=== PATIENT | female | born 1955 | race Asian ===

== ENCOUNTER 2022-08-18 10:16 | Outpatient (CLI) | payer MEDICARE, OTHER ==
--- NOTE | 2022-08-26 09:15 | Mammography Report ---
BILATERAL DIGITAL SCREENING MAMMOGRAM 3D/2D: 08/18/2022 CLINICAL: Family history of breast cancer. High risk screening. Routine screening. No prior exams were available for comparison. There are scattered areas of fibroglandular density in both breasts (category b / 25%-50% glandular t issue). No significant masses, calcifications, or other findings are seen in either breast. IMPRESSION: NEGATIVE There is no mammographic evidence of malignancy. A 1 year screening mammogram is recommended. Based on the Tyrer Cuzick model (a risk assessment model) the patients lifetime risk is 13.1% and he r 10 year risk is 7.0%. According to the ACR, ACS, and NCCN guidelines, an annual breast MRI exam indra ng with mammogram is recommended if the patients lifetime risk is 20% or greater. This exam was interpreted at Station ID: [id number]. NOTE: For mammograms, a report in lay terms will be sent to the patient. Approximately 15% of breast malignancies will not be visualized mammographically. In the management of a palpable breast mass, a negative mammogram must not discourage biopsy of a clinically suspicious lesion. Electronically Signed By: Cesario goodman/bud:08/25/2022 08:37:01 letter sent: No_Letter ACR BI-RADS Category 1: Negative 3341F PARENCHYMAL PATTERN: (A) - The breast(s) demonstrate(s) scattered fibroglandular densities. BI-RADS CATEGORY: (1) - 1 Mammogram [id number] 1 year screening LATERALITY: (B)
== END 2022-08-18 10:17 | disposition home or self-care (01) ==
LOC: DI.N 10:16
DX: Z12.31 Encounter for screening mammogram for malignant neoplasm of breast (principal); Z80.3 Family history of malignant neoplasm of breast

== ENCOUNTER 2022-10-05 12:40 | Outpatient (CLI) | payer MEDICARE, OTHER ==
--- NOTE | 2022-10-05 15:14 | DEXA Report ---
PROCEDURE: Dexa Spine and/or Hip INDICATIONS: POST MENOPAUSAL TECHNIQUE: Dual energy x-ray absorptiometry (DXA) was performed on a [employer] System. Regions measur ed are the AP Spine, femoral neck, and if needed forearm. COMPARISON: None FINDINGS: Lumbar Spine: Bone Mineral Density 0.817 g/cm/cm,T score -3, osteoporosis. Left Femoral Neck: Bone Mineral Density 0.819 g/cm/cm, T score 1.6, osteopenia. Left Hip: Bone Mineral Density 0.872 g/cm/cm,T score -1.1, osteopenia. (T score greater or equal to -1.0: NORMAL) (T score from -1.1 to -2.4: OSTEOPENIA) (T score less than or equal to -2.5 to: OSTEOPOROSIS) Impression: By WHO criteria, this patient has osteoporosis of the spine and osteopenia of the hip. Patients with diagnosis of osteoporosis or osteopenia should have regular bone mineral density assess ment. For those eligible for Medicare, routine testing is allowed once every 2 years. Testing frequ ency can be increased for patients who have rapidly progressing disease or for those who are receivin g medical therapy to restore bone mass. Reviewed by: Gloria Hernandez MD on 10/05/2022 3:12 PM PDT Approved by: Gloria Hernandez MD on 10/05/2022 3:12 PM PDT Station ID: [id number]
== END 2022-10-05 12:41 | disposition home or self-care (01) ==
LOC: DI 12:40
PROVIDERS: ATTEND Nurse Practitioner
DX: M81.0 Age-related osteoporosis without current pathological fracture (principal); Z78.0 Asymptomatic menopausal state

== ENCOUNTER 2023-09-07 08:53 | Outpatient (CLI) | payer MEDICARE, OTHER ==
[2023-09-07 12:31] LABS: BASOPHILS % (AUTO) 0.5 %; EOSINOPHILS # (AUTO) 0.2 10^3/uL (0.0-0.7); EOSINOPHILS % (AUTO) 3.1 %; HCT - HEMATOCRIT 43.3 % (37.0-47.0); HGB - HEMOGLOBIN 12.5 g/dL (12.0-16.0); LYMPHOCYTES # (AUTO) 2.2 10^3/uL (1.5-3.5); LYMPHOCYTES % (AUTO) 40.6 %; MEAN CORPUSCULAR HEMOGLOBIN 21.1 pg (27.0-31.0); MEAN CORPUSCULAR HGB CONC 28.9 g/dL (32.0-36.0); MEAN PLATELET VOLUME 11.5 fL (7.9-10.8); MONOCYTES # (AUTO) 0.4 10^3/uL (0.0-1.0); MONOCYTES % (AUTO) 6.4 %; NEUTROPHILS # (AUTO) 2.7 10^3/uL (1.5-6.6); NEUTROPHILS % (AUTO) 49.2 %; PLT - PLATELET COUNT 315 10^3/uL (130-450); RED BLOOD COUNT 5.93 10^6/uL (4.20-5.40); RED CELL DISTRIBUTION WIDTH 14.2 % (12.0-15.0); WHITE BLOOD COUNT 5.5 x10^3/uL (4.8-10.8)
[2023-09-07 12:36] LABS: SLIDE REVIEW? Indicated
[2023-09-07 12:44] LABS: PLATELET ESTIMATE, MANUAL NORMAL (130-450,000) (NORMAL); PLATELET MORPHOLOGY NORMAL APPEARANCE (NORMAL); RBC MORPHOLOGY (MULTIPLE) 1+ HYPOCHROMASIA (NORMAL)
[2023-09-07 13:02] LABS: ALBUMIN 4.5 g/dL (3.2-5.5); ALBUMIN/GLOBULIN RATIO 1.4 (1.0-2.2); ALKALINE PHOSPHATASE 65 IU/L (42-121); ALT ALANINE AMINOTRANSFERASE 10 IU/L (10-60); AST ASPARTATE AMINOTRANSFERASE 14 IU/L (10-42); BILIRUBIN,TOTAL 0.5 mg/dL (0.2-1.0); BUN - BLOOD UREA NITROGEN 16 mg/dL (6-20); CALCIUM 10.5 mg/dL (8.5-10.3); CARBON DIOXIDE - CO2 29 mmol/L (21-32); CHLORIDE 103 mmol/L (101-111); CHOL/HDL RATIO 4.7 (<4.4); CHOLESTEROL 296 mg/dL; CREATININE 0.9 mg/dL (0.6-1.3); GFR - MDRD 62 (>89); GLUCOSE 109 mg/dL (74-104); HDL CHOLESTEROL 63 mg/dL; LDL CHOLESTEROL,CALCULATED 188 mg/dL; POTASSIUM 4.2 mmol/L (3.5-4.5); SODIUM 138 mmol/L (135-145); TOTAL PROTEIN 7.7 g/dL (6.4-8.9); TRIGLYCERIDES 226 mg/dL (48-352); VLDL CHOLESTEROL 45 mg/dL
[2023-09-08 00:13] LABS: FERRITIN 204.1 ng/mL (11.0-306.8)
== END 2023-09-07 08:54 | disposition home or self-care (01) ==
LOC: LAB.N 08:53
PROVIDERS: ATTEND Nurse Practitioner
DX: I10 Essential (primary) hypertension (principal); E78.2 Mixed hyperlipidemia; R71.8 Other abnormality of red blood cells
CPT/HCPCS: 36415; 80053; 80061; 82728; 83540; 83721; 84466; 85025

== ENCOUNTER 2023-12-28 10:18 | Day surgery (SDC) | payer MEDICARE, OTHER ==
--- NOTE | 2023-12-28 06:38 | HISTORY & PHYSICAL EXAMINATION ---
PMH/PSH - Past Medical History Cardiovascular: positive: Hypertension, High cholesterol Respiratory: positive: None Endocrine/Autoimmune: positive: None GI: positive: None, GERD : positive: None HEENT: positive: None Psych: positive: None Musculoskeletal: positive: Chronic back pain Derm: positive: None MRSA Hx?: No - Past Surgical History General: positive: Colonoscopy Meds/Allgy - Home Medications Home Medications: Ambulatory Orders Medication Instructions Recorded Confirmed Lisinopril [Zestril] 40 mg PO DAILY 12/27/23 12/27/23 Rosuvastatin Calcium 10 mg PO DAILY 12/27/23 12/27/23 - Allergies Allergies/Adverse Reactions: Allergies Allergy/AdvReac Type Severity Reaction Status Date / Time No Known Drug Allergies Allergy Verified 12/27/23 12:53 Impression/Plan - Problem List Problem List: Pre-op H&P I am asked to see Tari for a screening colonoscopy examination. GI symptoms: None Family history of colon cancer/polyps: Sister recently diagnosed with appendiceal cancer Personal history of colon polyps: No Last colonoscopy examination: 10 years ago Anticoagulant use: No The Past Family, Social and Personal History has been reviewed with the patient. ROS Denies fevers, chills, night sweats, shortness of breath, chest pain, change in the color of skin or urine, diarrhea, constipation, hematemesis, hematochezia, headache, visual changes, muscle aches. PE VSS, Afeb HEENT: Pupils equal, round and reactive to light, sclera anicteric, normal hearing, oral mucous membranes moist and without lesions NECK: Supple without lymphadenopathy, thyromegaly or carotid bruits LUNGS: Clear to auscultation without wheezing HEART: NSR without murmurs CHEST: Equal and symmetric expansion, no rib pain ABD: Soft, nontender, no hepatosplenomegaly, no hernias GROIN: No hernias or lymphadenopathy EXTREMITIES: Normal neuro and muscular exam SKIN: Anicteric Radiologic Studies N/A Assessment: Request for a screening colonoscopy examination. Plan: Screening colonoscopy under sedation through the Day Surgery admission protocol at [facility]. Consent: Tari has been counseled for the procedure, it's indications, risks, benefits and expected outcome as well as alternative therapies. We specifically discussed risks associated with anesthesia and insertion of the endoscope into the large intestine which includes bleeding and injury to the colon which may require surgical intervention. Tari understands, agrees, and consents to the proposed operative strategy and requests that we proceed with the procedure as outlined in our discussion. Nathan Merchant MD, [facility] General Surgery Service
[2023-12-28] MEDS: LACTATED RINGERS 1,000 ML IV ONE ×2 (10:22→12:20)
[2023-12-28] MEDS ORDERED: PROPOFOL 500 MG/50 ML 500 MG/50 ML VIAL ONE (11:30)
[2023-12-28] MEDS ORDERED: LIDOCAINE-MPF 2% 5 ML VIAL ONE (11:30)
--- NOTE | 2023-12-28 11:30 | ANESTHESIA ---
Pre-Anesthesia VS, & Labs - Diagnosis screening - Procedure colonoscopy Vital Signs: Temp Pulse Resp BP Pulse Ox O2 Flow Rate 36.1 C L 89 12 124/95 H 100 12/28/23 10:39 12/28/23 10:39 12/28/23 10:39 12/28/23 10:39 12/28/23 10:39 Height: 5 ft Weight (kg): 56.3 kg Body Mass Index: 24.2 BMI Classification: Normal - NPO >8 hours Last Fluid Intake: am prep - Is Patient ?: No - Lab Results Lab results reviewed: Yes Home Medications and Allergies Home Medications: Ambulatory Orders Lisinopril [Zestril] 40 mg PO DAILY 12/27/23 Rosuvastatin Calcium 10 mg PO DAILY 12/27/23 Lisinopril [Zestril] 40 mg PO DAILY 12/27/23 Rosuvastatin Calcium 10 mg PO DAILY 12/27/23 Allergies/Adverse Reactions: Allergies Allergy/AdvReac Type Severity Reaction Status Date / Time No Known Drug Allergies Allergy Verified 12/27/23 12:53 Anes History & Medical History - Anesthetic History Anesthesia Complications: reports: No previous complications Family history of Anesthesia Complications: Denies Family history of Malignant Hyperthermia: Denies - Medical History Cardiovascular: reports: Hypertension, High cholesterol Pulmonary: reports: None Gastrointestinal: reports: None, GERD Urinary: reports: None Musculoskeletal: reports: Chronic back pain Endocrine/Autoimmune: reports: None Skin: reports: None - Surgical History General: reports: Colonoscopy Exam General: Alert, Oriented x3, Cooperative Dental: Partials Upper Mouth Openin Fingerbreadth Neck Mobility: Normal Mallampati classification: II Thyromental Distance: 4-6 cm Respiratory: Lungs clear, Normal breath sounds, No respiratory distress Cardiovascular: Regular rate Neurological: Normal speech Mental/Cognitive Status: Alert/Oriented X3, Normal for patient Cognitive Status: Within normal limits Plan Anesthesia Type: Total IV Consent for Procedure(s) Verified and Reviewed: Yes Code Status: Attempt Resuscitation ASA classification: 2-Mild systemic disease Is this case an emergency?: No
[2023-12-28 13:06] VITALS: BP 109/81; O2SAT 100
[2023-12-28] MEDS: SIMETHICONE 40 MG/0.6 ML 30 ML BOTTLE PO ONE (13:29)
--- NOTE | 2023-12-28 14:07 | ANESTHESIA POST OP EVALUATION ---
Anesthesia Post Eval - Post Anesthesia Eval Vitals: Last Vital Signs Temp 36.2 C L 12/28/23 13:03 Pulse 88 12/28/23 13:03 Resp 16 12/28/23 13:03 BP 109/81 H 12/28/23 13:03 Pulse Ox 100 12/28/23 13:03 O2 Flow Rate CV Function Including HR & BP: Stable Pain Control: Satisfactory Nausea & Vomiting: Negative Mental Status: Baseline Respiratory Status: Airway Patent Hydration Status: Satisfactory Anesthesia Complications: None
== END 2023-12-28 10:19 | disposition home or self-care (01) ==
LOC: SDS 10:18
PROVIDERS: ATTEND Surgery
DX: Z12.11 Encounter for screening for malignant neoplasm of colon (principal)
CPT/HCPCS: A9270; G0121; J7120

== ENCOUNTER 2024-02-11 15:47 | Outpatient (CLI) | payer MEDICARE, OTHER ==
--- NOTE | 2024-02-11 16:44 | Ultrasound Report ---
PROCEDURE: Abdomen Limited INDICATIONS: RUQ ABD PAIN TECHNIQUE: Real-time focused scanning was performed of the abdomen, with image documentation. COMPARISONS: None. FINDINGS: Liver: Liver is normal in size and heterogeneous in echotexture. No discrete hepatic lesion. Gallbladder: No gallstones, sludge, wall thickening or pericholecystic edema. Biliary ducts: Intrahepatic bile ducts are non-dilated. Extrahepatic bile duct caliber measures 3 m m. Normal is 6-7 mm or less in diameter, or 10 mm or less post-cholecystectomy. Pancreas: Visualized portions of the pancreas are sonographically normal. Right kidney: Normal in size and echotexture. Right kidney measures 8.5 cm long. No hydronephrosis o r nephrolithiasis. No solid masses. No complex renal cystic lesions which require follow-up. IVC: Intrahepatic inferior vena cava is patent. Miscellaneous: No free abdominal fluid. IMPRESSION: 1. Mildly heterogeneous liver parenchyma which may represent hepatic steatosis. No discrete hepatic l esion. 2. Normal-appearing gallbladder. No biliary ductal dilatation. 3. No abnormality is seen in visualized portion of pancreas and right kidney. Reviewed by: Neal Villa MD on 02/11/2024 4:42 PM PDT Approved by: Neal Villa MD on 02/11/2024 4:42 PM PDT Station ID: [id number]
== END 2024-02-11 15:48 | disposition home or self-care (01) ==
LOC: DI 15:47
PROVIDERS: ATTEND Nurse Practitioner
DX: R10.11 Right upper quadrant pain (principal)

== ENCOUNTER 2024-02-11 16:25 | Outpatient (CLI) | payer MEDICARE, OTHER ==
[2024-02-11 16:42] LABS: BASOPHILS % (AUTO) 0.3 %; EOSINOPHILS # (AUTO) 0.1 10^3/uL (0.0-0.7); EOSINOPHILS % (AUTO) 2.1 %; HCT - HEMATOCRIT 39.6 % (37.0-47.0); HGB - HEMOGLOBIN 11.6 g/dL (12.0-16.0); LYMPHOCYTES # (AUTO) 2.5 10^3/uL (1.5-3.5); LYMPHOCYTES % (AUTO) 37.4 %; MEAN CORPUSCULAR HEMOGLOBIN 21.4 pg (27.0-31.0); MEAN CORPUSCULAR HGB CONC 29.3 g/dL (32.0-36.0); MEAN CORPUSCULAR VOLUME 73.1 fL (81.0-99.0); MONOCYTES # (AUTO) 0.4 10^3/uL (0.0-1.0); MONOCYTES % (AUTO) 6.4 %; NEUTROPHILS # (AUTO) 3.6 10^3/uL (1.5-6.6); NEUTROPHILS % (AUTO) 53.7 %; PLT - PLATELET COUNT 246 10^3/uL (130-450); RED BLOOD COUNT 5.42 10^6/uL (4.20-5.40); RED CELL DISTRIBUTION WIDTH 14.3 % (12.0-15.0); WHITE BLOOD COUNT 6.8 x10^3/uL (4.8-10.8)
[2024-02-11 16:51] LABS: BILIRUBIN,URINE SMALL (NEGATIVE); GLUCOSE, URINE (UA) NEGATIVE (NEGATIVE); KETONES,URINE (UA) TRACE mg/dL (NEGATIVE); LEUKOCYTE ESTERASE, URINE MODERATE (NEGATIVE); NITRITE,URINE NEGATIVE (NEGATIVE); OCCULT BLOOD,URINE SMALL (NEGATIVE); PROTEIN,URINE TRACE mg/dL (NEGATIVE); UROBILINOGEN,URINE 0.2 (NORMAL) E.U./dL (NORMAL)
[2024-02-11 16:55] LABS: ALBUMIN 4.4 g/dL (3.2-5.5); ALBUMIN/GLOBULIN RATIO 1.5 (1.0-2.2); BILIRUBIN,TOTAL 0.5 mg/dL (0.2-1.0); CREATININE 0.7 mg/dL (0.6-1.3); POTASSIUM 4.6 mmol/L (3.5-4.5); TOTAL PROTEIN 7.4 g/dL (6.4-8.9)
[2024-02-11 16:56] LABS: CLARITY,URINE CLOUDY (CLEAR)
[2024-02-11 17:05] LABS: BACTERIA,URINE Moderate /HPF (None Seen); EPITHELIAL CELLS,UR FEW Transitional /HPF (<= Few); MUCUS,URINE Moderate Strands; RBC,URINE 0-5 /HPF (0-5); SQUAMOUS EPITHELIAL CELL,UR RARE Squamous (<= Few); WBC,URINE >25 /HPF (0-5)
== END 2024-02-11 16:26 | disposition home or self-care (01) ==
LOC: LAB 16:25
PROVIDERS: ATTEND Nurse Practitioner
DX: R10.11 Right upper quadrant pain (principal)
CPT/HCPCS: 36415; 80053; 81001; 82150; 83690; 85025; 87086